=== PATIENT | male | born 1985 | race Caucasian/White ===

== ENCOUNTER 2018-08-14 07:42 | Emergency (ER) | payer MEDICAID ==
[~2018-08-14] VITALS: Ht 160 cm; Wt 80.0 kg
[2018-08-14] MEDS ORDERED: IBUPROFEN 600MG TABLET PO ONE (08:30)
[2018-08-14] MEDS ORDERED: ALPRAZOLAM 0.25 MG TABLET PO ONE (09:30)
[2018-08-14 11:00] VITALS: BP 107/64
== END 2018-08-14 11:17 | disposition home or self-care (01) ==
LOC: ER 07:42
DX: R07.89 Other chest pain (principal); F41.9 Anxiety disorder, unspecified; J45.909 Unspecified asthma, uncomplicated; R42 Dizziness and giddiness
CPT/HCPCS: 71046; 99283